=== PATIENT | male | born 1990 | race African-American/Black ===

== ENCOUNTER 2017-02-03 14:36 | Emergency (ER) | payer SELFPAY ==
[2017-02-03 16:21] LABS: HEMATOCRIT 44.1 % (39.0-50.0); HEMOGLOBIN 14.8 g/dl (14.0-18.0); IMMATURE GRANULOCYTES 0.6 % (0.0-1.0); MEAN CELL VOLUME 85.6 fL CALC (80.0-100.0); MEAN CORPUSCULAR HGB 28.7 pG CALC (26.0-32.0); MEAN CORPUSCULAR HGB CONC 33.6 g/L CALC (32.0-36.0); NEUT# 11.3 thou/uL (1.82-7.42); RED BLOOD COUNT 5.15 mill/uL (4.70-6.10)
[2017-02-03 16:22] LABS: URINE BILIRUBIN - DIPSTICK NEGATIVE (NEGATIVE); URINE BLOOD DIPSTICK NEGATIVE (NEGATIVE); URINE CLARITY CLEAR; URINE COLOR YELLOW; URINE GLUCOSE - DIPSTICK NEGATIVE (NEGATIVE); URINE KETONE NEGATIVE (NEGATIVE); URINE LEUK ESTERASE NEGATIVE (NEGATIVE); URINE NITRITE - DIPSTICK NEGATIVE (Negative); URINE PROTEIN - DIPSTICK TRACE mg/dL (NEG-TRACE); URINE UROBILINOGEN - DIPSTICK 0.2 E.U./dL (0.2)
[2017-02-03 16:27] LABS: COCAINE NEGATIVE (NEGATIVE); TETRAHYDROCANNABIONOL POSITIVE (NEGATIVE)
[2017-02-03 16:28] LABS: BARBITURATES NEGATIVE (NEGATIVE); METHADONE NEGATIVE (NEGATIVE); OXCYCODONE NEGATIVE (NEGATIVE); TRICYLIC ANTIDEPRESSANTS NEGATIVE (NEGATIVE)
[2017-02-03 16:31] LABS: ALKALINE PHOSPHATASE 68 u/l (38-126); AMYLASE 187 u/l (30-110); ANION GAP 16 (6-22 (CALC)); BILIRUBIN, TOTAL 0.9 mg/dL (0.0-1.4); BUN 11 mg/dL (9-20); BUN/CREATININE RATIO 13 (12-20 (CALC)); CALCIUM 9.7 mg/dL (8.4-10.2); CARBON DIOXIDE 30 mmol/l (22-30); CHLORIDE 103 mmol/l (95-108); CREATININE 0.9 mg/dL (0.7-1.3); GFR > 60 ML/MIN (>=60 (CALC)); GFR FOR AFR.AMER. > 60 ML/MIN (>=60 (CALC)); GLUCOSE 99 mg/dL (75-110); LIPASE 518 u/l (23-300); POTASSIUM 4.9 mmol/l (3.5-5.1); SGOT/AST 16 u/l (17-59); SGPT/ALT 33 u/l (21-72); SODIUM 144 mmol/l (137-146); TOTAL PROTEIN 7.9 g/dL (6.3-8.2)
[2017-02-03] MEDS ORDERED: ZOFRAN ODT4 MG PO (16:45)
[2017-02-03] MEDS ORDERED: NEXIUM40 M1 PO (16:45)
[2017-02-03 17:04] VITALS: BP 119/74
== END 2017-02-03 17:04 | disposition home or self-care (01) | DRG 440 ==
LOC: ED 14:36
PROVIDERS: Emergency Medicine
DX: K85.90 Acute pancreatitis without necrosis or infection, unspecified (principal); R11.2 Nausea with vomiting, unspecified; R10.9 Unspecified abdominal pain; R19.7 Diarrhea, unspecified

== ENCOUNTER 2018-08-08 17:16 | Emergency (ER) | payer SELFPAY ==
[~2018-08-08] VITALS: Ht 167.6 cm; Wt 72.7 kg
[~2018-08-08 17:16] MED LIST: NEXIUM40 M1 PO; ZOFRAN ODT4 MG PO
[2018-08-08 18:29] LABS: URINE BILIRUBIN - DIPSTICK NEGATIVE (NEGATIVE); URINE BLOOD DIPSTICK NEGATIVE (NEGATIVE); URINE COLOR YELLOW; URINE GLUCOSE - DIPSTICK NEGATIVE (NEGATIVE); URINE KETONE NEGATIVE (NEGATIVE); URINE LEUK ESTERASE NEGATIVE (NEGATIVE); URINE NITRITE - DIPSTICK NEGATIVE (Negative); URINE PROTEIN - DIPSTICK NEGATIVE (NEG-TRACE); URINE UROBILINOGEN - DIPSTICK 0.2 E.U./dL (0.2)
[2018-08-08 18:37] LABS: IMMATURE GRANULOCYTES 0.4 % (0.0-5.0); MEAN CELL VOLUME 86.5 fL CALC (80.0-100.0); MEAN CORPUSCULAR HGB 28.3 pG CALC (26.0-32.0); MEAN CORPUSCULAR HGB CONC 32.7 g/L CALC (32.0-36.0); NEUT# 4.37 thou/uL (1.82-7.42); RED BLOOD COUNT 4.98 mill/uL (4.70-6.10); RED CELL DISTRI WIDTH 14.6 % (11.5-15.5)
[2018-08-08 18:40] LABS: BARBITURATES NEGATIVE (NEGATIVE); COCAINE NEGATIVE (NEGATIVE); METHADONE NEGATIVE (NEGATIVE); OXCYCODONE NEGATIVE (NEGATIVE); TETRAHYDROCANNABIONOL POSITIVE (NEGATIVE); TRICYLIC ANTIDEPRESSANTS NEGATIVE (NEGATIVE)
[2018-08-08 18:47] LABS: HEMATOCRIT 43.1 % (39.0-50.0); HEMOGLOBIN 14.1 g/dl (14.0-18.0)
[2018-08-08 18:54] LABS: ALBUMIN 4.2 g/dL (3.2-5.0); ALKALINE PHOSPHATASE 73 u/l (38-126); ANION GAP 13 (6-22 (CALC)); BILIRUBIN, TOTAL 0.7 mg/dL (0.0-1.4); BUN 13 mg/dL (9-20); BUN/CREATININE RATIO 14 (12-20 (CALC)); CARBON DIOXIDE 30 mmol/l (22-30); CHLORIDE 106 mmol/l (95-108); CREATININE 0.9 mg/dL (0.7-1.3); GFR > 60 ML/MIN (>=60 (CALC)); GFR FOR AFR.AMER. > 60 ML/MIN (>=60 (CALC)); LIPASE 300 u/l (23-300); POTASSIUM 3.9 mmol/l (3.5-5.1); SGOT/AST 17 u/l (17-59); SODIUM 145 mmol/l (137-146); TOTAL PROTEIN 7.2 g/dL (6.3-8.2)
[2018-08-08] MEDS ORDERED: PEPCID20 MG PO (19:02)
[2018-08-08] MEDS ORDERED: ZOFRAN4 MG/TAB PO (19:02)
[2018-08-08 19:31] VITALS: BP 128/73
== END 2018-08-08 19:27 | disposition home or self-care (01) | DRG 392 ==
LOC: ED 17:16
DX: K29.70 Gastritis, unspecified, without bleeding (principal); R10.13 Epigastric pain; R11.2 Nausea with vomiting, unspecified

== ENCOUNTER 2023-08-13 15:26 | Emergency (ER) | payer OTHER ==
[~2023-08-13] VITALS: Ht 167.6 cm; Wt 73.4 kg
[~2023-08-13 15:26] MED LIST changes: +LEVETIRACETAM500 MG PO; +PEPCID20 MG PO; +ZOFRAN4 MG/TAB PO
[2023-08-13 15:30] VITALS: BP 128/88
[2023-08-13 15:45] VITALS: BP 132/90
[2023-08-13 16:00] VITALS: BP 135/90
[2023-08-13] MEDS ORDERED: FLEXERIL5 M1 PO (17:03)
[2023-08-13] MEDS ORDERED: MOTRIN800 MG PO (17:03)
[2023-08-13 17:10] VITALS: BP 135/90
== END 2023-08-13 17:17 | disposition home or self-care (01) | DRG 563 ==
LOC: ED 15:26
DX: S39.012A Strain of muscle, fascia and tendon of lower back, initial encounter (principal); X50.0XXA Overexertion from strenuous movement or load, initial encounter; Y93.H9 Activity, other involving exterior property and land maintenance, building and construction; Y92.007 Garden or yard of unspecified non-institutional (private) residence as the place of occurrence of the external cause